=== PATIENT | male | born 1985 | race Caucasian/White ===

== ENCOUNTER → 2017-03-03 | Outpatient (CLI) | payer OTHER ==
[~2017-03-03] VITALS: Ht 172.7 cm; Wt 74.8 kg
[~2017-03-03] MED LIST: ATIVAN1 MG PO; CEFTIN500 MG PO; DIGESTIVE ADVA1 EAC1 PO; GUANFACINE HCL1 MG PO; OMEPRAZOLE 20 M20 M1 PO; ONDANSETRON ODT4 MG PO; PEPCID20 MG PO; PREVACID 15 MG15 M4 DISSOLVE; PREVACID 15 MG15 M4 PO; PROPRANOLOL 20M20 M1 PO; PROPRANOLOL 8080 MG PO; RISPERDAL0.25 MG PO; RISPERDAL0.5 MG PO; ROBITUSSIN100 MG/5 M PO; VITAFOL GUMMIE1 EACH PO; XYZAL5 MG PO; ZOFRAN ODT4 MG PO; ZYRTEC 10 MG TA10 M1 PO; ZYRTEC10 M2
--- NOTE | ~2017-03-03 | P ---
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 He has abdominal pain while taking the omeprazole. PREOPERATIVE DIAGNOSES: Abdominal pain, on PPI therapy. POSTOPERATIVE DIAGNOSES: 1. Retained material stomach suggestive of gastroparesis. 2. Small hiatus hernia. 3. Diffuse erythematous gastritis. MEDICATIONS: Deep sedation with propofol per Anesthesia. SPECIMEN: Small bowel biopsies to rule out celiac disease. ESTIMATED BLOOD LOSS: 3 mL. PROCEDURE: EGD with biopsy. FINDINGS: Prior to propofol sedation, procedure for upper endoscopy is discussed with ____. Potential risks, benefits and complications were discussed. He indicates he understands and desire that we proceed. DESCRIPTION OF PROCEDURE: With the patient in left lateral decubitus position, the Fuji video endoscope was inserted in the cervical esophagus under direct vision without difficulty. Examination of this organ to its entire length revealed normal esophageal mucosa. The squamocolumnar junction was examined. The patient has a history of significant esophagitis in the past. There is no endoscopic evidence of esophagitis on today's exam. Intermittently, small hiatus hernia was seen. The mucosa and hernia was normal. In addition, no strictures or masses were seen. Scope was advanced into the stomach, which was examined on end view as well as retroflexed views. He was noted have a moderate amount of retained ____ material primarily within the body of the stomach, but small amount in the antrum. Within these limitations, the mucosa was noted to be erythematous. It is noted that he has had previous biopsies for H. pylori and those were negative in the past. There is no evidence of ulcer disease. There is no endoscopic evidence of outlet obstruction. Upon retroflexion, the [address] [address] PROCEDURE REPORT Name: MAYTE MIGUEL Room #: REG [facility].#: [id number] Admission: 03/03/17 Attend Phys: Kvng Bernal MD Discharge: Date of : 85 Report #: [id number] small hiatus hernia was seen. No other abnormalities were identified, other retained food and diffuse erythema. The pylorus was unremarkable. It was patent. The pylorus was traversed. Examination of the duodenal bulb revealed the mucosa to be normal. The scope was advanced into the second portion. The mucosa was intact; however, the villi appeared to be slightly shortened and a little thicker than usual. Therefore, multiple biopsies were obtained to evaluate for celiac disease. Previous biopsies for celiac disease did not reveal typical features of celiac disease, but the villus height was slightly reduced. At that point, the scope was slowly withdrawn and careful circumferential views confirmed the above findings. The patient tolerated the procedure well. CONDITION OF THE PATIENT UPON DISCHARGE: Following procedure, the patient is drowsy. He will be discharged home when fully ambulatory. INSTRUCTIONS TO THE PATIENT AND FAMILY AT THE TIME OF DISCHARGE: The patient has had recent complaints of abdominal pain. He does have retained material suggestive of gastroparesis. This is a potential source of pain. It is noted that he has had previous ultrasounds and the most recent was done in 2011, which was unremarkable. It is also noted that he has had multiple CTs of the abdomen in the past and the most recent was also done in 04/2012. No acute processes were identified on the last CT. I think it is unlikely that the patient will cooperate for a gastric emptying study. Therefore, empirically needs gastroparesis. Would like to avoid prokinetic agents in this patient. We will start off with dietary consultation in an attempt to manage his symptoms diet person. If abdominal pain persists, it may be reasonable to repeat at least an ultrasound of the abdomen. We will check for recent labs from primary physician. If symptoms persistent, he should return to see me in followup. <ELECTRONICALLY SIGNED> By: Kvng Bernal MD 03/04/17 [id number] Kvng Bernal MD /nt
--- NOTE | ~2017-03-03 | S ---
[facility] [employer] [place] [address] SURGICAL PATH RPT PROCEDURE Name: MAYTE COE Room #: REG [facility]..#: [id number] Admission: 03/03/17 Date of : 85 Discharge: Report #: [id number] Path Case #: [id number] PATHOLOGY REPORT COLLECTION DATE: 03/03/2017 RECEIVED DATE: 03/04/2017 SUBMITTING PHYS: Dr. Kvng Bernal OTHER PHYS: Dr. Say Scott SPECIMEN(S) RECEIVED: A.Small bowel bx * * * * * * * * * * * * FINAL DIAGNOSIS: Small bowel, biopsy: - Unremarkable small bowel mucosa. PATHOLOGIST: Reagan Bravo M.D. REPORT ELECTRONICALLY SIGNED BY: Reagan Bravo M.D. DATE/TIME: 03/07/2017 11:31 * * * * * * * * * * * * GROSS PATHOLOGY: Received in formalin labeled "Mayte Coe small bowel BX," are 5 segments of monroe soft tissue measuring 1.3 x 0.8 x 0.3 cm in aggregate dimensions and ranging from 0.2 to 0.6 cm in maximum dimension. The specimen is submitted entirely in cassette A1. (TSD; 03/04/2017) CLINICAL HISTORY: Pre-Op DX: Abdominal pain Post-OP DX: Retained food, new DXgastric paresis, gastritis, hiatal hernia INITIAL CPT CODE(S): A; 01898 Professional services performed by [facility] at [facility] [address], [place] [address] Technical services performed by [facility] at [address] [place] [address], [address] [address]. [facility] [address] [place] [address] SURGICAL PATH RPT PROCEDURE Name: MAYTE COE Room #: REG [facility]#: [id number] Admission: 03/03/17 Date of : 85 Discharge: Report #: [id number] Path Case #: [id number] [facility] [address] [address] PHONE: [phone] DIRECTOR: Marco Antonio Kasper M.D. * * * END OF REPORT * * *
== END | disposition home or self-care (01) ==
LOC: GI 06:45
DX: K29.60 Other gastritis without bleeding (principal); Q93.5 Other deletions of part of a chromosome; K44.9 Diaphragmatic hernia without obstruction or gangrene; K21.9 Gastro-esophageal reflux disease without esophagitis; Z88.8 Allergy status to other drugs, medicaments and biological substances
CPT/HCPCS: 62110; 62900